=== PATIENT | female | born 1950 | race Caucasian/White ===

== ENCOUNTER 2016-11-15 05:45 | Inpatient (IN) ==
[2016-11-11 09:52] LABS: Basophils # 0.1 10*3/uL (0.0-0.2); Eosinophils # 0.2 10*3/uL (0.0-0.87); Eosinophils % 2.8 % (0.00-10.9); Hematocrit 39.2 VOL% (35.7-47.0); Hemoglobin 13.7 GM/DL (12.0-16.0); Immature Granulocytes % 0.3 %; Immature Granulocytes Absolute 0.02 #; Lymphocytes % 16.8 % (21.3-54.2); Mean Corpuscular HGB Conc 34.9 GM/DL (32-36); Mean Corpuscular Hemoglobin 28 PG (27-34); Mean Corpuscular Volume 79.8 FL (87-102); Mean Platelet Volume 11.8 FL (9.6-12.0); Monocytes # 0.5 10*3/uL (0.11-0.8); Monocytes % 7.8 % (1.7-12.7); Neutrophils # 4.3 10*3/uL (1.4-7.4); Neutrophils % 71.3 % (38.7-73.9); Platelet Count 258 T/CUMM (130-400); Red Blood Count 4.91 MC/CUMM (3.8-5.5); Red Cell Distribution Width 14.1 % (9.3-17.3)
[2016-11-11 09:58] LABS: Apearance,Urine CLOUDY (Clear); Bacteria,Urine Many /HPF (Few); Bilirubin,Urine Negative (Negative); Blood, Urine Negative (Negative); Glucose,Urine (UA) Negative (Negative); Ketones,Urine Negative (Negative); Mucus,Urine Many /LPF (Occasional); Nitrite,Urine Negative (Negative); Protein,Urine Negative; RBC,Urine 13 /HPF (0-4); Squamous Epithelial Cell,Urine Occasional /HPF (0-10); Urine Color Yellow (Yellow); Urine Specific Gravity 1.021 (1.001-1.035); Urine Urobilinogen < 2.0 EU/DL (0.2-1.0); WBC,Urine 10 /HPF (0-6)
--- NOTE | 2016-11-11 10:00 | EKG Report ---
Stationary ECG Study [facility] Test Date: 11/11/2016 10:00:15 AM Pat Name: GERRI NICOLE Department: Room: Gender: F Activities Counselor: ROSELIA 11-15-16 : 1950 Requested by: Wilbur Enciso Order Number: [id number] Reading MD: APOLINAR GARCIA Intervals [place] Rate: 80 P: 66 AK: 151 QRS: 30 QRSD: 87 T: 53 QT: 385 QTc: 421 Interpretive Statements SINUS RHYTHM LOW QRS VOLTAGE IN PRECORDIAL LEADS Electronically Signed On 11-11-16 10:33:42 CDT by APOLINAR GARCIA [email or web address]
[2016-11-11 10:01] LABS: Partial Thromboplastin Time 27.1 SECS (0-40)
[2016-11-11 10:14] LABS: Albumin 3.5 G/DL (3.4-5.0); Calcium 9.4 MG/DL (8.5-10.1); Osmolality,Calculated 279.4 MOS/KG (273-304); Potassium 3.7 MMOL/L (3.5-5.1); Total Protein 7.5 G/DL (6.4-8.3)
--- NOTE | 2016-11-11 10:18 | XRay Report ---
XR chest 2V Indication: Respiratory preoperative evaluation Comparison: None available Findings: The heart and mediastinum are normal in size and configuration with cardiac surgery changes. The pulmonary vascularity is normal in caliber. No lung infiltrates, effusions, pneumothorax or other abnormality is demonstrated. Impression: No acute cardiopulmonary disease. PROCEDURE INTERPRETED AT [facility] DEPARTMENT OF RADIOLOGY Final Report Signed by: Dr. Slim Jones
[2016-11-15] MEDS ORDERED: VANCOMYCIN INJ 1,000 MG in SODIUM CHLORIDE 0.9% 250 ML IV ONE (06:00)
--- NOTE | 2016-11-15 07:07 | History and Physical Update ---
History and Physical Update - History and Physical H&P was reviewed, the patient examined and there: are no changes in the patients condition since last H&P was completed.
[2016-11-15] MEDS ORDERED: VANCOMYCIN 1,000 MG VIAL ONE (07:32)
[2016-11-15] MEDS ORDERED: ceFAZolin 1,000 MG VIAL ONE (07:32)
[2016-11-15] MEDS ORDERED: SODIUM CHLORIDE 0.9% 100 ML IV ONE (07:33)
[2016-11-15] MEDS: LACTATED RINGERS 1,000 ML IV SCH ×3 (08:02→16:30)
[2016-11-15] MEDS ORDERED: ROCURONIUM 100 MG/10 ML VIAL IV ONE (08:40)
[2016-11-15] MEDS ORDERED: LIDOCAINE 1% 5 ML VIAL ONE (08:40)
[2016-11-15] MEDS ORDERED: GLYCOPYRROLATE 0.4 MG/2 ML VIAL ONE (08:40)
[2016-11-15] MEDS ORDERED: PHENYLEPHRINE 1 MG/10 ML SYRINGE IV ONE (08:40)
[2016-11-15] MEDS ORDERED: KETOROLAC 30 MG/1 ML VIAL ONE (08:40)
[2016-11-15] MEDS ORDERED: DEXAMETHASONE 10 MG/1 ML VIAL ONE (08:40)
[2016-11-15] MEDS ORDERED: ONDANSETRON 4 MG/2 ML VIAL ONE (08:40)
[2016-11-15] MEDS ORDERED: PROPOFOL 200 MG/20 ML VIAL IV ONE (08:40)
[2016-11-15] MEDS ORDERED: TRANEXAMIC ACID 1,000 MG/10 ML VIAL IV ONE (09:22)
[2016-11-15] MEDS ORDERED: NALOXONE 0.4 MG/ML VIAL IV PRN (10:12)
[2016-11-15] MEDS ORDERED: HYDROmorphone 2 MG/1 ML VIAL IV PRN ×2 (10:12→11:21)
[2016-11-15] MEDS ORDERED: LACTULOSE 20 GM/30 ML UDCUP PO PRN (10:12)
[2016-11-15] MEDS ORDERED: BISACODYL 10 MG SUPP RECTAL PRN (10:12)
[2016-11-15] MEDS ORDERED: MAGNESIUM HYDROXIDE SUSP 30 ML UDCUP PO PRN (10:12)
[2016-11-15] MEDS ORDERED: diphenhydrAMINE CAP 25 MG CAPSULE PO PRN (10:12)
[2016-11-15] MEDS ORDERED: PROMETHAZINE 25 MG/1 ML VIAL IM PRN (10:12)
[2016-11-15] MEDS ORDERED: TEMAZEPAM 7.5 MG CAPSULE PO PRN (10:12)
[2016-11-15] MEDS ORDERED: ROPIVACAINE 0.5% 30 ML VIAL ONE (10:38)
--- NOTE | 2016-11-15 10:39 | Anesthesia Post-Op ---
Anesthesia Post OP - Post Ansesthetic Evaluation Patient seen in post op: Yes Resp: within normal limits CV: within normal limits Mental: within normal limits Temp: within normal limits [id number]: within normal limits Nausea and Vomiting: within normal limits Pain: within normal limits
[2016-11-15] MEDS ORDERED: SEVOFLURANE 1 UNIT/15 MINUTE INH ONE (10:41)
[2016-11-15] MEDS ORDERED: MIDAZOLAM 2 MG/2 ML VIAL ONE (10:41)
[2016-11-15] MEDS ORDERED: fentaNYL 100 MCG/2 ML VIAL ONE (10:41)
[2016-11-15] MEDS ORDERED: NEOSTIGMINE 10 MG/10 ML VIAL ONE (10:42)
[2016-11-15] MEDS ORDERED: ACETAMINOPHEN 1,000 MG/100 ML VIAL IV ONE (10:42)
[2016-11-15] MEDS ORDERED: LACTATED RINGERS 1,000 ML IV ONE (10:42)
[2016-11-15] MEDS ORDERED: ONDANSETRON 4 MG/2 ML VIAL IV PRN (11:21)
[2016-11-15] MEDS ORDERED: HYDROmorphone 2 MG/1 ML VIAL ONE (11:23)
--- NOTE | 2016-11-15 11:34 | XRay Report ---
XR knee 2V RT Indication: Joint replacement (right knee) Comparison: None Technique: Frontal and lateral views of the right knee. Findings: Status post total right knee arthroplasty. No evidence of immediate hardware failure. Superficial skin matti and surgical drain/s overlie the knee. Subcutaneous and joint space air noted which is likely postoperative. IMPRESSION: Status post total right knee arthroplasty. PROCEDURE INTERPRETED AT [facility] DEPARTMENT OF RADIOLOGY Final Report Signed by: Dr Carlitos Carrasco
[2016-11-15] MEDS ORDERED: HYDROmorphone PCA 30 MG/30 ML SYRINGE IV ONE (11:35)
[2016-11-15] MEDS: HYDROmorphone PCA 30 MG/30 ML SYRINGE IV SCH (11:36)
--- NOTE | 2016-11-15 12:52 | Hospitalist Consult Note ---
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 Betancourt is a 65 year old black female w/PMHx of Hypertension, CABG (2 vessel dz 2008), arthritis, cholesterol, PAD, liver and a Taoism presented to [facility] for scheduled surgery for today a Right Total Knee Replacement with Dr Fernie Mcbride. Hospital Medicine has been consulted for medical management of hypertension. Upon exam patient was awake and alert, family, friends at bedside. Her pain was currently under control and she denied any nausea. Pulses were easily palpable and dressing (rt leg immobilizer and drain intact). PCP: Dr Josee Marie (Laxmi) Operator Lights: Dr Smart (Laxmi) Orthopedic Surgeon: Dr Fernie Mcbride CC: Wilbur Enciso Jr., MD - Home Medications and Allergies Home Medications: Home Medications Medication Instructions Recorded Confirmed Type Losartan [Cozaar] 50 mg PO DAILY 11/04/16 11/15/16 History Omeprazole [Prilosec] 20 mg PO DAILY 11/04/16 11/15/16 History amLODIPine [Norvasc] 5 mg PO DAILY 11/04/16 11/15/16 History hydroCHLOROthiazide 25 mg PO DAILY 11/04/16 11/15/16 History [Hydrochlorothiazide] Aspirin [Ecotrin] 81 mg PO DAILY 11/15/16 11/15/16 History Multivitamin (Centrum) [Centrum 1 tablet PO DAILY 11/15/16 11/15/16 History Tab] [place]-3/Dha/Epa/Fish Oil [Fish Oil 1 each PO DAILY 11/15/16 11/15/16 History 1,000 mg Softgel] Allergies/Adverse Reactions: Allergies Allergy/AdvReac Type Severity Reaction Status Date / Time No Known Allergies Allergy Unverified 11/04/16 10:00 Medical,Surgical,& Family Hx - Medical History Cardio: History of: Hypertension, Cardiovascular Problems (DR AUTUMN LOPEZ[facility]) Neurology: History of: Peripheral Neuropathy No history of: Seizures HEENT: History of: Eye Problem (READING GLASSES), Dental Problems (PARTIALS UPPER AND LOWER) Endocrine: History of: Dyslipidemia Rheumatology: History of;: Gout Respiratory: No history of: Respiratory Problems (FLU VAC-NO; PNEU VAC- NO.) Gastrointestinal: History of: GERD, Liver Problems (HERMAMGIOMA), GI Problems ( HIATAL HERNIA) Musculoskeletal: History of: Musculoskeletal Problems (ARTHRITIS LOWER BACK. OA , SPINAL STENOSIS.) Other: History of: Skin Problems (ANTINUCLEAR ANTIBODY.) - Surgical History Cardiac Surgeries: Sugical HX of: Cardiac Catheterization (SCHEDULED FOR 2016.), Cardiac Surgery (BYPASS SURGERY 2008 DR ESPINO [facility].) Abdominal Surgeries: Surgical HX of: Abdominal Surgery (GALLBLADDER SURGERY.), Hernia Repair (1971) Orthopedic Surgeries: Surgical HX of;: Implanted Devices (PLATE IN ANKLE.), Orthopedic Surgery (RT CARPAL TUNNEL) - Family History Family History: Reports;: Family Cancer (SISTERS X4), Family Diabetes (SISTERS X2), Family Heart Disease (FATHER, SISTERSD X4), Family Hypertension (MOTHER AND FATHER SIBLINGS.), Family Stroke (SISTERS X3) - Social History Smoking Status: Never smoker Frequency of Alcohol Use: None Type of Drug Use: None 12 point system: reviewed and no additional remarkable complaints except as stated - Constitutional Constitutional: Absent: chills, fever(s) Exam - Constitutional Vitals: Period Temp Pulse Resp BP Sys/Joseph Pulse Ox Last 24 Hr 97 F-97.8 F 62-97 16-20 129-178/69-98 97-129 General appearance: normal weight, no acute distress - Head Head exam: Present: normal inspection - Eye Eye exam: Present: EOMI Pupils: Present: JONNY - Neck Neck exam: Present: normal inspection. Absent: thyromegaly - Respiratory Respiratory exam: Present: clear to auscultation bilaterally. Absent: rhonchi, stridor, wheezes - Cardiovascular Cardiovascular exam: Present: regular rate and rhythm - GI/Abdominal GI/Abdominal exam: Present: normal bowel sounds, soft. Absent: tenderness, rebound - Extremities Exam Extremities exam: Present: other (right leg with leg immobilizer in place s/p right knee replacement this a.m.; PULSES easily palpable). Absent: edema - Neurological Exam Neurological exam: Present: alert, oriented X3 - Psychiatric Psychiatric exam: Present: normal affect, normal mood. Absent: agitated, anxious - Skin Skin exam: Present: normal color, warm, dry Results - Labs CBC & BMP: 11/11/16 09:44 11/11/16 09:44 Lab Results: I have reviewed the past 24 hour labs - Impressions EKG: sinus rhythm, HR [address] Pedro - Diagnostic Findings Procedure: Chest x-ray: report reviewed by me (nothing acute) <Yudy Mayes - Last Filed: 11/15/16 15:41> History of Present Illness - Consult Narrative History of present illness: Ms. Betancourt is a 65 year old female whom I saw independently of Vika Canales NP. i agree with her summary, exam and plan. Mrs Betancourt is doing well post op at this time. We will continue her antiHTn meds and monitor her BP. Her daughter and granddaughters are here with her. CC: Wilbur Enciso Jr., MD Exam - Constitutional Vitals: Period Temp Pulse Resp BP Sys/Joseph Pulse Ox Last 24 Hr 97 F-97.8 F 62-97 16-20 129-178/69-98 97-129 Results - Labs CBC & BMP: 11/11/16 09:44 11/11/16 09:44
--- NOTE | 2016-11-15 14:05 | Orthopedic Progress Note ---
Orthopedics - Subjective Interval history: Comfortable neurovascular intact discussed up in a Exam - Constitutional Vitals: Period Temp Pulse Resp BP Sys/Joseph Pulse Ox Last 24 Hr 97 F-97.8 F 62-97 16-20 129-178/69-98 97-129 Results - Labs CBC & BMP: 11/11/16 09:44 11/11/16 09:44
[2016-11-15] MEDS: ceFAZolin 2,000 MG in PREMIX 1 EACH IV SCH ×2 (15:30→22:30)
[2016-11-15] MEDS: ONDANSETRON 4 MG/2 ML VIAL IV PRN (17:37)
[2016-11-15] MEDS: FONDAPARINUX 2.5 MG/0.5 ML SYRINGE SUBCUT SCH (21:44)
[2016-11-15] MEDS: DOCUSATE SODIUM 100 MG CAPSULE PO SCH (21:44)
--- NOTE | 2016-11-15 22:59 | Operative Note ---
DATE: 11/15/2016 PREOPERATIVE DIAGNOSIS: OSTEOARTHRITIS, RIGHT KNEE. POSTOPERATIVE DIAGNOSIS: OSTEOARTHRITIS, RIGHT KNEE. OPERATIVE PROCEDURE: Right total knee (ATTUNE). SURGEON: Wilbur Enciso Jr., MD ANESTHESIA: General. INDICATIONS: A 65-year-old black female with severe osteoarthritis involving her right knee. She feng s maximized conservative treatment through the years including medications and even injections. She is here today for elective right total knee after being cleared preoperatively. OPERATIVE PROCEDURE: The patient was taken to the operating room and under general anesthetic, posit ioned in the supine position. The right leg was positioned, prepped and draped in the usual sterile manner. She received Vancomycin and Ancef preoperatively. The limb was elevated, exsanguinated, and the tourniquet inflated to 300 mmHg. A midline incision was made over the anterior aspect of the ri t knee. Sharp dissection was carried down through skin and subcutaneous tissue. A median parapate llar arthrotomy performed with the knee revealing extensive tricompartmental degenerative changes. I ntramedullary alignment guides were used to make the appropriate cuts about the distal femur and the proximal tibia. The femur was sized to a 5 and the tibia to a 6. A 6 mm spacer was selected fixed b earing. PCL retained. The patella resurfaced with a 35 button. After removal of the trial componen ts, all three components were cemented into place and the trocars were irrigated and closed over two 1/8th-inch Hemovac drains in a standard fashion using #1 Vicryl for the arthrotomy, 2-0 Vicryl for th e subcutaneous layer, and matti for skin. Sterile dressing applied. The tourniquet was deflated d uring wound closure at 48 minutes. She was transported to recovery room in stable condition. CC:
[2016-11-16] MEDS: ONDANSETRON 4 MG/2 ML VIAL IV PRN (04:35)
[2016-11-16 07:17] LABS: Basophils % 0.1 % (0.0-0.8); Hematocrit 32.5 VOL% (35.7-47.0); Hemoglobin 11.3 GM/DL (12.0-16.0); Immature Granulocytes % 0.4 %; Immature Granulocytes Absolute 0.05 #; Lymphocytes # 0.7 10*3/uL (1.4-4.0); Lymphocytes % 5.6 % (21.3-54.2); Mean Corpuscular HGB Conc 34.8 GM/DL (32-36); Mean Corpuscular Hemoglobin 28 PG (27-34); Mean Corpuscular Volume 79.9 FL (87-102); Mean Platelet Volume 11.7 FL (9.6-12.0); Monocytes # 0.8 10*3/uL (0.11-0.8); Monocytes % 6.3 % (1.7-12.7); Neutrophils # 11.5 10*3/uL (1.4-7.4); Neutrophils % 87.6 % (38.7-73.9); Platelet Count 254 T/CUMM (130-400); Red Blood Count 4.07 MC/CUMM (3.8-5.5); Red Cell Distribution Width 14.4 % (9.3-17.3); White Blood Count 13.1 T/CUMM (4-12)
[2016-11-16 07:36] LABS: Calcium 8.9 MG/DL (8.5-10.1); Osmolality,Calculated 282.4 MOS/KG (273-304); Potassium 4.1 MMOL/L (3.5-5.1)
--- NOTE | 2016-11-16 08:05 | Orthopedic Progress Note ---
Orthopedics - Subjective Interval history: Comfortable some mild nausea drain removed H&H stable ready to start PT Exam - Constitutional Vitals: Period Temp Pulse Resp BP Sys/Joseph Pulse Ox Last 24 Hr 97 F-97.8 F 62-87 16-18 135-178/69-98 93-99 Results - Labs CBC & BMP: 11/16/16 07:04 11/16/16 07:04
[2016-11-16] MEDS: cefTRIAXone 1,000 MG in SODIUM CHLORIDE 0.9% 100 ML IV SCH (08:40)
[2016-11-16] MEDS: LACTATED RINGERS 1,000 ML IV SCH (08:45)
[2016-11-16] MEDS: ASPIRIN EC 81 MG TABLET PO SCH (09:59)
[2016-11-16] MEDS: DOCUSATE SODIUM 100 MG CAPSULE PO SCH ×2 (10:00→21:40)
[2016-11-16] MEDS: LOSARTAN 50 MG TABLET PO SCH (10:00)
[2016-11-16] MEDS: MULTIVITAMIN (CENTRUM) TABLET PO SCH (10:00)
[2016-11-16] MEDS: hydroCHLOROthiazide 25 MG TABLET PO SCH (10:00)
[2016-11-16] MEDS: amLODIPine 5 MG TABLET PO SCH (10:01)
[2016-11-16] MEDS: PANTOPRAZOLE 40 MG TABLET PO SCH (10:02)
--- NOTE | 2016-11-16 11:21 | Pathology Report from [facility] ---
[facility] [place] : [id number] PATIENT NAME : Gerri Betancourt ORDERING DR : MERISSA CONCEPCION JR, MD CLINICAL HX: RT knee osteoarthritis POST-OP DX: Same SPECIMEN INFO: RT knee bone & tissue GROSS DESCRIPTION: The specimen is received in formalin labeled with the patients name and consists of fragments of bone, cartilage and adipose tissue collectively measuring 13.6 x 15.7 cm. The articular surfaces are focally degenerative with several areas of subchondral eburnation measuring up to 2.8 cm. Also present are large areas of cartilage consistent with osteophyte formation. Bridges Supervisor tissue submitted in one cassette following decalcification. DIAGNOSIS FOR GERRI BETANCOURT: RIGHT KNEE, TOTAL REPLACEMENT: Fragments of cartilage and bone with degenerative/reactive changes, c/w osteoarthritis. COLLECTED DATE: 11/15/2016 [facility] [place] DATE: 11/16/2016 ELECTRONICALLY SIGNED BY: Diana Baltazar M.D. 11/16/2016 - 10:27:24 MTDLisa
[2016-11-16] MEDS: HYDROmorphone PCA 30 MG/30 ML SYRINGE IV SCH (12:04)
--- NOTE | 2016-11-16 13:38 | Hospitalist Progress Note ---
Assessment and Plan - Time spent with patient Time spent with patient: Less than 30 minutes (1) UTI (urinary tract infection) Status: Acute Assessment and plan: 65-year-old -Vietnamese female with history of hypertension, CABG, arthritis, hyperlipidemia, PAD, and Restorationism admitted by Dr. Enciso on for right total knee replacement. Hospitalists were consulted to assist with medical management. Patient states she is feeling good and her pain is well controlled with Dilaudid MEAT CLERK. Her blood pressure is mildly elevated but her home meds have just restarted. Her H&H did drop some but this is expected with surgery and dilution. Will monitor this. Patient did have a urinary tract infection that was present upon admission and Rocephin has been started for this. Patient is requesting to go to swing bed so we will put in consult to social workers. Patient does have mild leukocytosis of 13.1 but this is expected postoperatively. Patient is currently using her incentive spirometer. Dr. Mayes will see and examine patient and further recommendations to follow. Current Visit: Yes (2) Hypertension Status: Chronic Current Visit: Yes (3) Status post total right knee replacement Status: Acute Current Visit: Yes Exam - Constitutional Vitals: Period Temp Pulse Resp BP Sys/Joseph Pulse Ox Last 24 Hr 97.3 F-97.8 F 72-78 18-18 135-167/70-97 93-99 Results - Labs CBC & BMP: 11/16/16 07:04 11/16/16 07:04 Specialty Discharge - Follow Up or Referrals Follow up with: Wilbur Enciso Jr., MD [Physician] -
[2016-11-16] MEDS ORDERED: TUBERCULIN SKIN TEST 0.1 ML SYRINGE INTRADERM ONE (16:35)
--- NOTE | 2016-11-16 16:37 | Case Mgmt Physician Query Form ---
TB Signs and Symptoms Screening ([place]) INSTRUCTIONS: To be completed annually on residents/staff with a significant Tuberculin Skin Test (TST) upon admission/hire or a prior significant TST. To be completed on all staff at hire. Please respond to each listed symptom with an (X) in either the "YES" or "NO" box. Do you currently have any of the following symptoms: YES NO ( ) ( x ) A cough If yes, is it: ( ) Productive ( ) Non- productive ( ) ( x ) Hemoptysis (spitting up blood) ( ) ( x ) Chest pains ( ) ( x ) Weight Loss ( ) ( x ) Fever ( ) ( x ) Night Sweats ( ) ( x ) Weakness ( ) ( x ) Loss of Appetite ( ) ( x ) Difficulty Breathing If you answered YES" to any of the above questions, how long have symptoms been present? Comments: If you have any questions, please contact me. Thank you, Davina Dozier RN, Office : [phone] Email : [email or web address]
[2016-11-16] MEDS: FONDAPARINUX 2.5 MG/0.5 ML SYRINGE SUBCUT SCH (21:40)
[2016-11-17 03:59] LABS: Basophils % 0.2 % (0.0-0.8); Eosinophils % 0.4 % (0.00-10.9); Hematocrit 29.2 VOL% (35.7-47.0); Hemoglobin 10.3 GM/DL (12.0-16.0); Immature Granulocytes % 0.5 %; Immature Granulocytes Absolute 0.05 #; Lymphocytes # 0.7 10*3/uL (1.4-4.0); Lymphocytes % 6.8 % (21.3-54.2); Mean Corpuscular HGB Conc 35.3 GM/DL (32-36); Mean Corpuscular Hemoglobin 28 PG (27-34); Mean Corpuscular Volume 79.3 FL (87-102); Mean Platelet Volume 12.2 FL (9.6-12.0); Monocytes # 0.8 10*3/uL (0.11-0.8); Monocytes % 7.3 % (1.7-12.7); Neutrophils # 8.8 10*3/uL (1.4-7.4); Neutrophils % 84.8 % (38.7-73.9); Platelet Count 219 T/CUMM (130-400); Red Blood Count 3.68 MC/CUMM (3.8-5.5); Red Cell Distribution Width 14.4 % (9.3-17.3); White Blood Count 10.3 T/CUMM (4-12)
[2016-11-17] MEDS: MULTIVITAMIN (CENTRUM) TABLET PO SCH (09:19)
[2016-11-17] MEDS: PANTOPRAZOLE 40 MG TABLET PO SCH (09:19)
[2016-11-17] MEDS: DOCUSATE SODIUM 100 MG CAPSULE PO SCH ×2 (09:19→21:41)
[2016-11-17] MEDS: cefTRIAXone 1,000 MG in SODIUM CHLORIDE 0.9% 100 ML IV SCH (09:19)
[2016-11-17] MEDS: ASPIRIN EC 81 MG TABLET PO SCH (09:19)
[2016-11-17] MEDS: LACTATED RINGERS 1,000 ML IV SCH (09:43)
--- NOTE | 2016-11-17 10:26 | Orthopedic Progress Note ---
Orthopedics - Subjective Interval history: Comfortable H&H stable wound dry tolerating PT de Sammie discharge to swing bed rehab tomorrow Exam - Constitutional Vitals: Period Temp Pulse Resp BP Sys/Joseph Pulse Ox Last 24 Hr 97.1 F-98.1 F 84-96 18-20 96-140/59-81 93-100 Results - Labs CBC & BMP: 11/17/16 02:49 11/16/16 07:04 Specialty Discharge - Follow Up or Referrals Follow up with: Wilbur Enciso Jr., MD [Physician] -
[2016-11-17] MEDS ORDERED: SODIUM CHLORIDE 0.9% 1,000 ML IV ONE (10:47)
[2016-11-17] MEDS: LOSARTAN 50 MG TABLET PO SCH (11:00)
[2016-11-17] MEDS: hydroCHLOROthiazide 25 MG TABLET PO SCH (11:00)
[2016-11-17] MEDS: amLODIPine 5 MG TABLET PO SCH (11:00)
--- NOTE | 2016-11-17 12:56 | Hospitalist Progress Note ---
Assessment and Plan - Time spent with patient Time spent with patient: Less than 30 minutes (1) UTI (urinary tract infection) Status: Acute Assessment and plan: 65-year-old -Canadian female with history of hypertension, CABG, arthritis, hyperlipidemia, PAD, and Baptism admitted by Dr. Enciso on for right total knee replacement. Hospitalists were consulted to assist with medical management. Patient states she is feeling good and her pain is well controlled with Dilaudid SPACE AND MISSILE OPERATIONS. Her blood pressure is mildly elevated but her home meds have just restarted. Her H&H did drop some but this is expected with surgery and dilution. Will monitor this. Patient did have a urinary tract infection that was present upon admission and Rocephin has been started for this. Patient is requesting to go to swing bed so we will put in consult to social workers. Patient does have mild leukocytosis of 13.1 but this is expected postoperatively. Patient is currently using her incentive spirometer. Dr. Mayes will see and examine patient and further recommendations to follow. 11/17/2016 patient is doing well. She has been afebrile but her blood pressures did drop into the 90s this morning. She was given a 1 L bolus and blood pressures are back up to normal. Her SPACE AND MISSILE OPERATIONS was DC'd yesterday and she is on p.o. narcotics and it is controlling her pain well. Her H&H has dropped a little to 10.3/29.2 but this is stable. We will continue to monitor her blood counts and blood pressure. She is expected to go to swing bed tomorrow for rehab. Dr. Mayes will see and examine patient and further recommendations to follow. Current Visit: Yes (2) Hypertension Status: Chronic Current Visit: Yes (3) Status post total right knee replacement Status: Acute Current Visit: Yes Hospitalist: Subjective Interval history: Patient states she feels pretty good today. She has no complaints. Pain is controlled on p.o. narcotics. She is planning on going to swing bed tomorrow. Exam - Constitutional Vitals: Period Temp Pulse Resp BP Sys/Jospeh Pulse Ox Last 24 Hr 97.1 F-98.1 F 74-96 16-20 96-153/59-81 93-100 Exam: 65-year-old -Canadian female, no acute distress, alert and oriented Chest clear CV regular rate and rhythm Abdomen obese, nontender Extremities no edema, left knee dressing clean and dry Results - Labs CBC & BMP: 11/17/16 02:49 11/16/16 07:04 Lab Results: I have reviewed the past 24 hour labs Specialty Discharge - Follow Up or Referrals Follow up with: Wilbur Enciso Jr., MD [Physician] -
[2016-11-17] MEDS: FONDAPARINUX 2.5 MG/0.5 ML SYRINGE SUBCUT SCH (21:40)
--- NOTE | 2016-11-18 08:26 | Orthopedic Progress Note ---
Orthopedics - Subjective Interval history: Comfortable dressing dry tolerating PT well to swing bed today instructed Exam - Constitutional Vitals: Period Temp Pulse Resp BP Sys/Joseph Pulse Ox Last 24 Hr 97.9 F-98.4 F 74-108 16-20 133-153/68-80 90-97 Results - Labs CBC & BMP: 11/17/16 02:49 11/16/16 07:04 Specialty Discharge - Follow Up or Referrals Follow up with: Wilbur Enciso Jr., MD [Physician] -
--- NOTE | 2016-11-18 08:28 | Discharge Summary ---
Hospital Course - Hospital Course Hospital Course: Admitted for elective right total knee discharged swing bed Diagnosis - Discharge Diagnosis (1) Osteoarthritis of right knee Status: Acute Specialty Discharge - Follow Up or Referrals Follow up with: Wilbur Enciso Jr., MD [Physician] - Discharge Plan - Discharge Data Disposition: Swing Bed, Hos Based, [facility] Condition at Discharge: Stable Discharge Diet: advance to your usual diet Activity: ambulate only with your walker, as per physical therapy, increase activity as tolerated Hygiene: may shower, keep area(s) dry Weight Bearing at Discharge: weight bear as tolerated Driving: not until seen by doctor - Discharge Medications New HYDROcodone/ACETAMIN 7.5-325 [Oaks 7.5-325] 1 tablet PO Q4H PRN #30 tablet PRN Reason: Pain Moderate (4-7) Continue Omeprazole [Prilosec] 20 mg PO DAILY hydroCHLOROthiazide [Hydrochlorothiazide] 25 mg PO DAILY amLODIPine [Norvasc] 5 mg PO DAILY Losartan [Cozaar] 50 mg PO DAILY Aspirin [Ecotrin] 81 mg PO DAILY [place]-3/Dha/Epa/Fish Oil [Fish Oil 1,000 mg Softgel] 1 each PO DAILY Multivitamin (Centrum) [Centrum Tab] 1 tablet PO DAILY - Follow Up or Referral Follow Up: Wilbur Enciso Jr., MD [Physician] - - Forms/Instructions Instructions: Total Knee Replacement (DC) Additional Discharge Instructions: Discharge to rehab swing bed continue with home meds Oaks for pain aspirin once a day weightbearing as tolerated with CPM and total knee protocol. Paul to be removed and wound Steri-Stripped November 29. Follow-up with me 4 weeks Exam - Constitutional Vitals: Period Temp Pulse Resp BP Sys/Joseph Pulse Ox Last 24 Hr 97.9 F-98.4 F 74-108 16-20 133-153/68-80 90-97 DS: Provider Date of admission: 11/15/16 05:45 Primary care physician: . No PCP Attending physician on admission: Wilbur Enciso Jr., MD Consults: 11/15/16 10:12 Consult to Case Mgmt/Social Srvs [CONS] Routine Reason for Case Mgmt/Social Srvs: Rehab Home Health Equipment Consult Comment: Bedside Commode, CPM, Walker Consult to Occupational Therapy [CONS] Routine Reason for Occupational Therapy: Evaluate and Treat Consult Comment: ADL's Consult to Physical Therapy [CONS] Routine Reason for Physical Therapy: Evaluate and Treat Gait Training 11/15/16 10:14 Consult to Physician [CONS] Routine Comment: Hospitalist for medical management department chair Provider: Consulting Provider Notified: Yes When should Consulting Provider be notified: Now Consult to Specialist Group: Hospitalist Person Notified: ro ernst Date Notified: 11/15/16 Time Notified: 12:31 Discharging clinician: Wilbur Enciso Jr., MD
[2016-11-18] MEDS: MULTIVITAMIN (CENTRUM) TABLET PO SCH (09:06)
[2016-11-18] MEDS: hydroCHLOROthiazide 25 MG TABLET PO SCH (09:06)
[2016-11-18] MEDS: ASPIRIN EC 81 MG TABLET PO SCH (09:06)
[2016-11-18] MEDS: DOCUSATE SODIUM 100 MG CAPSULE PO SCH (09:06)
[2016-11-18] MEDS: cefTRIAXone 1,000 MG in SODIUM CHLORIDE 0.9% 100 ML IV SCH (09:06)
[2016-11-18] MEDS: amLODIPine 5 MG TABLET PO SCH (09:06)
[2016-11-18] MEDS: LOSARTAN 50 MG TABLET PO SCH (09:06)
[2016-11-18] MEDS: PANTOPRAZOLE 40 MG TABLET PO SCH (09:07)
--- NOTE | 2016-11-18 10:21 | Hospitalist Progress Note ---
Assessment and Plan - Time spent with patient Time spent with patient: Less than 30 minutes (1) UTI (urinary tract infection) Status: Acute Assessment and plan: 65-year-old -[place] female with history of hypertension, CABG, arthritis, hyperlipidemia, PAD, and Hoahaoism admitted by Dr. Enciso on for right total knee replacement. Hospitalists were consulted to assist with medical management. Patient states she is feeling good and her pain is well controlled with Dilaudid PROMOTIONS ASSOCIATE. Her blood pressure is mildly elevated but her home meds have just restarted. Her H&H did drop some but this is expected with surgery and dilution. Will monitor this. Patient did have a urinary tract infection that was present upon admission and Rocephin has been started for this. Patient is requesting to go to swing bed so we will put in consult to social workers. Patient does have mild leukocytosis of 13.1 but this is expected postoperatively. Patient is currently using her incentive spirometer. Dr. Mayes will see and examine patient and further recommendations to follow. 11/17/2016 patient is doing well. She has been afebrile but her blood pressures did drop into the 90s this morning. She was given a 1 L bolus and blood pressures are back up to normal. Her PROMOTIONS ASSOCIATE was DC'd yesterday and she is on p.o. narcotics and it is controlling her pain well. Her H&H has dropped a little to 10.3/29.2 but this is stable. We will continue to monitor her blood counts and blood pressure. She is expected to go to swing bed tomorrow for rehab. Dr. Mayes will see and examine patient and further recommendations to follow. 11/18/2016. Patient is doing great. She is afebrile and her blood pressures are stable on her current regimen. Her pain is controlled on p.o. narcotics. She is being transferred to swing bed today. Dr. Weathers will see and examine patient and further recommendations to follow. Current Visit: Yes (2) Hypertension Status: Chronic Current Visit: Yes (3) Status post total right knee replacement Status: Acute Current Visit: Yes Hospitalist: Subjective Interval history: Patient feels good today. Pain is controlled on p.o. narcotics. She has been discharged to swing bed today. Exam - Constitutional Vitals: Period Temp Pulse Resp BP Sys/Joseph Pulse Ox Last 24 Hr 97.9 F-98.4 F 74-108 16-20 133-153/68-80 90-97 Exam: 65-year-old -[place] female, no acute distress, alert and oriented Chest clear CV regular rate and rhythm Abdomen obese, nontender Extremities no edema, left knee dressing clean and dry Results - Labs CBC & BMP: 11/17/16 02:49 11/16/16 07:04 Lab Results: I have reviewed the past 24 hour labs Specialty Discharge - Follow Up or Referrals Follow up with: Wilbur Enciso Jr., MD [Physician] - 12/15/16 8:30 am (4 weeks)
[2016-11-18] MEDS: FONDAPARINUX 2.5 MG/0.5 ML SYRINGE SUBCUT SCH (13:00)
[2016-11-22 16:31] VITALS: BP 155/75
== END 2016-11-18 13:05 | DRG 470 ==
LOC: N.SDSINP 05:45 → N.3E 09:42
PROVIDERS: ADMIT Orthopaedic Surgery; ATTEND Orthopaedic Surgery

== ENCOUNTER 2018-05-08 05:23 | Inpatient (IN) ==
[2018-05-03 10:19] LABS: Basophils # 0.1 10*3/uL (0.0-0.2); Eosinophils # 0.1 10*3/uL (0.0-0.87); Eosinophils % 2.1 % (0.00-10.9); Hematocrit 38.5 VOL% (35.7-47.0); Hemoglobin 13.1 GM/DL (12.0-16.0); Immature Granulocytes % 0.4 %; Immature Granulocytes Absolute 0.02 #; Lymphocytes # 0.8 10*3/uL (1.4-4.0); Lymphocytes % 15.3 % (21.3-54.2); Mean Corpuscular Hemoglobin 28 PG (27-34); Mean Corpuscular Volume 80.9 FL (87-102); Mean Platelet Volume 12.1 FL (9.6-12.0); Monocytes # 0.3 10*3/uL (0.11-0.8); Monocytes % 5.8 % (1.7-12.7); Neutrophils # 3.9 10*3/uL (1.4-7.4); Neutrophils % 75.4 % (38.7-73.9); Platelet Count 243 T/CUMM (130-400); Red Blood Count 4.76 MC/CUMM (3.8-5.5); Red Cell Distribution Width 14.4 % (9.3-17.3); White Blood Count 5.2 T/CUMM (4-12)
[2018-05-03 10:27] LABS: INR 0.9; PT Patient Result 9.8 SECS; Partial Thromboplastin Time 25.9 SECS (0-40)
[2018-05-03 10:31] LABS: Amorphous Crystals,Urine Occasional /HPF (Few); Apearance,Urine CLOUDY (Clear); Bacteria,Urine Occasional /HPF (Few); Bilirubin,Urine Negative (Negative); Blood, Urine Negative (Negative); Glucose,Urine (UA) Negative (Negative); Hyaline Casts,Urine 4 /LPF (0-3); Ketones,Urine Negative (Negative); Mucus,Urine Occasional /LPF (Occasional); Nitrite,Urine Negative (Negative); Protein,Urine Negative; RBC,Urine 1 /HPF (0-4); Squamous Epithelial Cell,Urine Moderate /HPF (0-10); Urine Color Yellow (Yellow); Urine Specific Gravity 1.024 (1.001-1.035); Urine Urobilinogen < 2.0 EU/DL (0.2-1.0); WBC,Urine 12 /HPF (0-6)
[2018-05-03 10:50] LABS: Albumin 3.6 G/DL (3.4-5.0); Bilirubin,Total 0.8 MG/DL (0.2-1.0); Calcium 9.5 MG/DL (8.5-10.1); Osmolality,Calculated 278.5 MOS/KG (273-304); Potassium 3.7 MMOL/L (3.5-5.1); Total Protein 7.9 G/DL (6.4-8.3)
[2018-05-08] MEDS ORDERED: ceFAZolin 1,000 MG VIAL ONE (06:05)
[2018-05-08] MEDS ORDERED: VANCOMYCIN 1,000 MG VIAL ONE (06:05)
[2018-05-08] MEDS ORDERED: ceFAZolin 1,000 MG in SYRINGE 1 EACH IV ONE (06:30)
[2018-05-08] MEDS ORDERED: VANCOMYCIN INJ 1,000 MG in SODIUM CHLORIDE 0.9% 250 ML IV ONE (06:30)
[2018-05-08] MEDS: LACTATED RINGERS 1,000 ML IV SCH (06:37)
[2018-05-08] MEDS ORDERED: diphenhydrAMINE CAP 25 MG CAPSULE PO PRN (07:15)
[2018-05-08] MEDS ORDERED: TEMAZEPAM 7.5 MG CAPSULE PO PRN (07:15)
[2018-05-08] MEDS ORDERED: LACTULOSE 20 GM/30 ML UDCUP PO PRN (07:15)
[2018-05-08] MEDS ORDERED: BISACODYL 10 MG SUPP RECTAL PRN (07:15)
[2018-05-08] MEDS ORDERED: PROMETHAZINE 25 MG/1 ML VIAL IM PRN (07:15)
[2018-05-08] MEDS ORDERED: TRANEXAMIC ACID 1,000 MG/10 ML VIAL ONE (09:07)
[2018-05-08] MEDS ORDERED: ONDANSETRON 4 MG/2 ML VIAL ONE ×2 (09:08→09:10)
[2018-05-08] MEDS ORDERED: HYDROmorphone 2 MG/1 ML VIAL ONE (09:08)
[2018-05-08] MEDS ORDERED: MIDAZOLAM 2 MG/2 ML VIAL ONE (09:09)
[2018-05-08] MEDS ORDERED: fentaNYL 100 MCG/2 ML VIAL ONE (09:09)
[2018-05-08] MEDS ORDERED: SEVOFLURANE 1 UNIT/15 MINUTE INH ONE (09:09)
[2018-05-08] MEDS ORDERED: LABETALOL 20 MG/4 ML SYRINGE IV ONE (09:09)
[2018-05-08] MEDS ORDERED: PROPOFOL 200 MG/20 ML VIAL IV ONE (09:09)
[2018-05-08] MEDS ORDERED: SUCCINYLCHOLINE 200 MG/10 ML VIAL ONE (09:10)
[2018-05-08] MEDS ORDERED: PHENYLEPHRINE 1 MG/10 ML SYRINGE IV ONE (09:10)
[2018-05-08] MEDS: HYDROmorphone 2 MG/1 ML VIAL IV PRN ×3 (09:10→09:20)
[2018-05-08] MEDS ORDERED: SODIUM CHLORIDE 0.9% 100 ML IV ONE (09:10)
[2018-05-08] MEDS ORDERED: GLYCOPYRROLATE 0.4 MG/2 ML VIAL ONE (09:10)
[2018-05-08] MEDS ORDERED: NEOSTIGMINE 10 MG/10 ML VIAL ONE (09:10)
[2018-05-08] MEDS ORDERED: ROCURONIUM 100 MG/10 ML VIAL IV ONE (09:10)
[2018-05-08] MEDS ORDERED: ONDANSETRON 4 MG/2 ML VIAL IV PRN (09:15)
[2018-05-08] MEDS ORDERED: EPINEPHrine 1 MG/ML VIAL ONE (10:29)
[2018-05-08] MEDS ORDERED: BUPIVACAINE 0.5% 50 ML VIAL ONE (10:29)
[2018-05-08] MEDS: PANTOPRAZOLE 40 MG TABLET PO SCH (10:30)
[2018-05-08] MEDS: ASPIRIN EC 81 MG TABLET PO SCH (10:30)
[2018-05-08] MEDS: ASCORBIC ACID 500 MG TABLET PO SCH (10:30)
[2018-05-08] MEDS: MULTIVITAMIN (CENTRUM) TABLET PO SCH (10:30)
[2018-05-08] MEDS: OMEGA 3 ACID ETHYL ESTERS 1 GM CAPSULE PO SCH (10:30)
[2018-05-08] MEDS ORDERED: ACETAMINOPHEN 1,000 MG/100 ML VIAL IV ONE (10:30)
[2018-05-08] MEDS: hydroCHLOROthiazide 25 MG TABLET PO SCH (10:30)
[2018-05-08] MEDS: CYANOCOBALAMIN 500 MCG TABLET PO SCH (10:30)
[2018-05-08] MEDS: DOCUSATE SODIUM 100 MG CAPSULE PO SCH ×2 (10:30→20:57)
[2018-05-08] MEDS: MORPHINE 4 MG/1 ML VIAL IV PRN ×2 (14:10→20:57)
[2018-05-08] MEDS: ONDANSETRON 4 MG/2 ML VIAL IV PRN (15:59)
[2018-05-08] MEDS: ceFAZolin 2,000 MG in PREMIX 1 EACH IV SCH (16:12)
[2018-05-08] MEDS: FONDAPARINUX 2.5 MG/0.5 ML SYRINGE SUBCUT SCH (18:57)
[2018-05-09] MEDS: ceFAZolin 2,000 MG in PREMIX 1 EACH IV SCH (00:41)
[2018-05-09] MEDS: MORPHINE 4 MG/1 ML VIAL IV PRN ×5 (03:26→21:10)
[2018-05-09 05:34] LABS: Basophils % 0.5 % (0.0-0.8); Eosinophils # 0.2 10*3/uL (0.0-0.87); Eosinophils % 2.1 % (0.00-10.9); Hematocrit 33.6 VOL% (35.7-47.0); Hemoglobin 11.3 GM/DL (12.0-16.0); Immature Granulocytes % 0.6 %; Immature Granulocytes Absolute 0.05 #; Lymphocytes # 0.7 10*3/uL (1.4-4.0); Lymphocytes % 8.1 % (21.3-54.2); Mean Corpuscular HGB Conc 33.6 GM/DL (32-36); Mean Corpuscular Hemoglobin 28 PG (27-34); Mean Corpuscular Volume 81.8 FL (87-102); Mean Platelet Volume 12.3 FL (9.6-12.0); Monocytes # 0.5 10*3/uL (0.11-0.8); Monocytes % 6.2 % (1.7-12.7); Neutrophils # 7.2 10*3/uL (1.4-7.4); Neutrophils % 82.5 % (38.7-73.9); Platelet Count 195 T/CUMM (130-400); Red Blood Count 4.11 MC/CUMM (3.8-5.5); Red Cell Distribution Width 14.4 % (9.3-17.3); White Blood Count 8.8 T/CUMM (4-12)
[2018-05-09 05:58] LABS: Osmolality,Calculated 276.5 MOS/KG (273-304); Potassium 3.6 MMOL/L (3.5-5.1)
[2018-05-09 08:44] LABS: Risk Ratio 4.17; Thyroid Stimulating Hormone 0.622 uIU/ml (0.358-3.74); VLDL CHOLESTEROL 14.2 MG/DL
[2018-05-09] MEDS: hydroCHLOROthiazide 25 MG TABLET PO SCH (09:27)
[2018-05-09] MEDS: ASPIRIN EC 81 MG TABLET PO SCH (09:27)
[2018-05-09] MEDS: ASCORBIC ACID 500 MG TABLET PO SCH (09:28)
[2018-05-09] MEDS: MULTIVITAMIN (CENTRUM) TABLET PO SCH (09:28)
[2018-05-09] MEDS: CYANOCOBALAMIN 500 MCG TABLET PO SCH (09:28)
[2018-05-09] MEDS: PANTOPRAZOLE 40 MG TABLET PO SCH (09:28)
[2018-05-09] MEDS: DOCUSATE SODIUM 100 MG CAPSULE PO SCH ×2 (09:28→21:10)
[2018-05-09] MEDS: OMEGA 3 ACID ETHYL ESTERS 1 GM CAPSULE PO SCH (09:28)
[2018-05-09] MEDS: cefTRIAXone 1,000 MG in SYRINGE 1 EACH IV SCH (09:29)
[2018-05-09] MEDS: ONDANSETRON 4 MG/2 ML VIAL IV PRN ×2 (09:30→14:40)
[2018-05-09] MEDS: FONDAPARINUX 2.5 MG/0.5 ML SYRINGE SUBCUT SCH (17:21)
[2018-05-09] MEDS: LACTATED RINGERS 1,000 ML IV SCH (19:30)
[2018-05-10] MEDS: MORPHINE 4 MG/1 ML VIAL IV PRN ×2 (05:22→14:30)
[2018-05-10] MEDS: ASPIRIN EC 81 MG TABLET PO SCH (08:57)
[2018-05-10] MEDS: MULTIVITAMIN (CENTRUM) TABLET PO SCH (08:57)
[2018-05-10] MEDS: ASCORBIC ACID 500 MG TABLET PO SCH (08:58)
[2018-05-10] MEDS: hydroCHLOROthiazide 25 MG TABLET PO SCH (08:58)
[2018-05-10] MEDS: OMEGA 3 ACID ETHYL ESTERS 1 GM CAPSULE PO SCH (08:59)
[2018-05-10] MEDS: PANTOPRAZOLE 40 MG TABLET PO SCH (08:59)
[2018-05-10] MEDS: DOCUSATE SODIUM 100 MG CAPSULE PO SCH ×2 (08:59→20:32)
[2018-05-10] MEDS: CYANOCOBALAMIN 500 MCG TABLET PO SCH (08:59)
[2018-05-10] MEDS: cefTRIAXone 1,000 MG in SYRINGE 1 EACH IV SCH (09:00)
[2018-05-10] MEDS: FONDAPARINUX 2.5 MG/0.5 ML SYRINGE SUBCUT SCH (17:52)
[2018-05-10] MEDS: MAGNESIUM HYDROXIDE SUSP 30 ML UDCUP PO PRN (20:32)
[2018-05-11] MEDS: MAGNESIUM HYDROXIDE SUSP 30 ML UDCUP PO PRN (02:47)
[2018-05-11 07:57] VITALS: BP 155/81
[2018-05-11] MEDS ORDERED: SULFAMETHOX/TRIMETHOPRIM 400-80 MG TABLET PO SCH (09:00)
[2018-05-11] MEDS: MULTIVITAMIN (CENTRUM) TABLET PO SCH (09:34)
[2018-05-11] MEDS: hydroCHLOROthiazide 25 MG TABLET PO SCH (09:34)
[2018-05-11] MEDS: OMEGA 3 ACID ETHYL ESTERS 1 GM CAPSULE PO SCH (09:34)
[2018-05-11] MEDS: PANTOPRAZOLE 40 MG TABLET PO SCH (09:34)
[2018-05-11] MEDS: CYANOCOBALAMIN 500 MCG TABLET PO SCH (09:34)
[2018-05-11] MEDS: ASCORBIC ACID 500 MG TABLET PO SCH (09:34)
[2018-05-11] MEDS: ASPIRIN EC 81 MG TABLET PO SCH (09:34)
[2018-05-11] MEDS: DOCUSATE SODIUM 100 MG CAPSULE PO SCH (09:34)
== END 2018-05-11 12:17 | disposition swing bed (61) | DRG 470 ==
LOC: N.OR 05:23 → N.SDSINP 05:25 → N.3E 09:47
PROVIDERS: ADMIT Orthopaedic Surgery; ATTEND Orthopaedic Surgery